=== PATIENT | female | born 1985 | race Caucasian/White ===

== ENCOUNTER → 2019-08-02 08:42 | Outpatient (CLI) | payer OTHER, SELFPAY ==
--- NOTE | 2019-08-02 08:43 | US_ITS ---
STUDY: FIRST TRIMESTER OBSTETRICAL ULTRASOUND REASON FOR EXAM: Female, 33 years old supervision of early LMP: June 01, 2019. TECHNIQUE: Transabdominal and Transvaginal TECHNICAL QUALITY: Adequate. PRIOR ULTRASOUND: None. FINDINGS: There is visualization of a single gestational sac in a normal intrauterine position. The mean sac diameter (MSD) measures 3.27 cm, indicating an estimated gestational age (EGA) of 8 weeks, 4 days. The gestational sac shape is within normal limits. There is a visualized yolk sac. The yolk sac measures 6.2 mm. The placenta is non-visualized. There is visualization of a live embryo. The crown-rump length (CRL) measures 1.89 cm, indicating an estimated gestational age (EGA) of 8 weeks, 2 days. There is demonstrated cardiac activity with a heart rate of 166 bpm. The estimated gestation age (EGA) by LMP is 8 weeks, 6 days. The estimated date of delivery (IHSAN) by LMP is March 07, 2020. The estimated gestation age (EGA) by US is 8 weeks, 2 days. The estimated date of delivery (IHSAN) by US is March 11, 2020. The uterus measures 14.1 cm x 7.9 cm by 5.1 cm. There is no demonstrated uterine fibroid. The cervix is closed. The right ovary measures 3.2 cm x 2.6 cm x 1.6 cm. There is no right ovarian cyst. There is no visualized right adnexal mass or complex lesion. The left ovary measures 2.5 cm x 2.7 cm x 2.2 cm. There is no left ovarian cyst. There is no visualized left adnexal mass or complex lesion. There is no fluid in the cul de sac. US/Init OB < 14Wks US IMPRESSION: Single live intrauterine gestation with a mean gestational age of 8 weeks and 2 days. Electronically Signed: Parmjit Chavez, at 8:47 EST , Service support ,
== END ==
PROVIDERS: Family Provider Family Medicine; PCP Family Medicine; Referring Provider Obstetrics & Gynecology; Visit Provider Obstetrics & Gynecology
DX: Z34.90 Encounter for supervision of normal pregnancy, unspecified, unspecified trimester (principal)
CPT/HCPCS: 76801

== ENCOUNTER → 2019-08-19 | Outpatient (CLI) | payer OTHER, SELFPAY ==
[2019-08-19 10:17] VITALS: BMI 23.1
[2019-08-19 14:06] LABS: Amphetamine Urine VISTA NEGATIVE (<1000 ng/mL); Barbiturate Urine VISTA NEGATIVE (< 200 ng/mL); Benzodiazepine Urine VISTA NEGATIVE (< 200 ng/mL); Cocaine Urine VISTA NEGATIVE (< 300 ng/mL); Ecstacy Urine VISTA NEGATIVE (< 500 ng/mL); Methadone Urine VISTA NEGATIVE (< 300 ng/mL); PCP Urine VISTA NEGATIVE (< 25 ng/mL); THC Urine VISTA NEGATIVE (< 50 ng/mL); Vista UDS pH Range 8
[2019-08-19 15:45] LABS: Chlamydia Trachomatis by PCR Negative (Negative); Neisserai gonorrhoeae by PCR Negative (Negative); Probe Check PASS; Sample Adequacy Control PASS; Specimen Processing Control PASS
[2019-08-21 16:51] LABS: HPV APTIMA, High Risk Negative (Negative)
== END | disposition home or self-care (01) ==
LOC: LABSPEC 13:19
PROVIDERS: PCP Family Medicine; Referring Provider Obstetrics & Gynecology; Visit Provider Obstetrics & Gynecology
DX: Z34.80 Encounter for supervision of other normal pregnancy, unspecified trimester (principal)
CPT/HCPCS: 80307; 87086; 87088; 87491; 87591; 87624; 88175; G0145

== ENCOUNTER → 2020-02-13 17:27 | Outpatient (CLI) | payer OTHER, SELFPAY ==
[2019-08-19 10:17] VITALS: BMI 23.1
[2020-02-13 17:10] VITALS: BMI 23.8
--- NOTE | 2020-02-13 17:29 | US_ITS ---
STUDY: SECOND AND THIRD TRIMESTER OBSTETRICAL ULTRASOUND REASON FOR EXAM: Female, 34 years old. Small for gestational age. Growth. ANABEL. LMP: 06/01/2019. TECHNIQUE: Transabdominal TECHNICAL QUALITY: Adequate. PRIOR ULTRASOUND: 08/02/2019. FINDINGS: There is a single intrauterine fetus. The fetus is in a cephalic presentation. There is demonstrated cardiac activity with a heart rate of 152 bpm. There is a normal amniotic fluid volume. The largest amniotic fluid pocket measures 3.8 by cm. The amniotic fluid index (ANABEL) is 11.9 cm. The placenta is anterior in location and is not low lying. There are Grade 2 placental changes. The cervix measures 3.02 cm in length. The bilateral adnexal regions are normal. BIOMETRY: BPD: 8.61 cm: 34 weeks, 6 days HC: 32.84 cm: 37 weeks, 3 days AC: 30.71 cm: 34 weeks, 5 days FL: 7.02 cm: 36 weeks, 0 days CI: 79 FL/BPD: 82 FL/HC: FL/AC: 23 HC/AC: 1.07 age by current US: 35 weeks, 6 days. IHSAN by current US: 03/13/2020. Estimated weight: 2645 grams, +/- 386 grams, 20 %. age by prior US: 36 weeks, 1 days. IHSAN by prior US: 03/11/2020. Age by LMP: 36 weeks, 5 days. IHSAN by LMP: 03/07/2020. US/OB Limited With Biometrics IMPRESSION: 1. Live single intrauterine of 35 weeks, 6 days. IHSAN is 03/13/2020. There is adequate interval growth since prior ultrasound. 2. EFW of 2645 g. This is at the 20th percentile. 3. ANABEL of 11.9 cm. 4. Anterior grade 2 placenta. 5. Vertex presentation. Electronically Signed: Luciano Anglin DO at 18:21 EDT Tel [phone], Service support ,
== END ==
PROVIDERS: PCP Family Medicine; Referring Provider Obstetrics & Gynecology; Visit Provider Obstetrics & Gynecology
DX: O26.843 Uterine size-date discrepancy, third trimester (principal); Z3A.35 35 weeks gestation of pregnancy
CPT/HCPCS: 76816; 87081

== ENCOUNTER → 2020-08-07 09:20 | Outpatient (CLI) | payer OTHER, SELFPAY ==
[2020-02-13 17:10] VITALS: BMI 23.8
[2020-08-07 13:00] LABS: Cholesterol 213 mg/dL (200); Glucose 71 mg/dL (74-106); High Density Lipoprotein 68 mg/dL; Triglycerides 55 mg/dL; Very Low Density Lipoprotein 11 mg/dL (5-40)
== END ==
PROVIDERS: PCP Family Medicine; Visit Provider Family Medicine
DX: Z00.00 Encounter for general adult medical examination without abnormal findings (principal); I47.1 Supraventricular tachycardia
CPT/HCPCS: 36415; 80061; 82947; 83735; 84443